=== PATIENT | male | born 1995 | race Caucasian/White ===

== ENCOUNTER 2020-06-29 12:04 | Outpatient (REF) | payer MEDICAID, SELFPAY ==
[2020-06-30 16:27] LABS: Chlamydia Result Negative (Negative); GC Result Negative (Negative)
== END 2020-06-29 12:05 | disposition home or self-care (01) ==
LOC: LBN 12:04
PROVIDERS: PCP Internal Medicine Sleep Medicine; Visit Provider Pediatrics
DX: R30.0 Dysuria (principal)
CPT/HCPCS: 87491; 87591